=== PATIENT | male | born 1985 | race American Indian/Alaskan Native ===

== ENCOUNTER 2016-06-05 10:23 | Emergency (ER) | payer SELFPAY ==
[2016-06-05 11:56] VITALS: BP 141/91
== END 2016-06-05 11:57 | disposition left against medical advice (07) ==
LOC: ED 10:23
DX: S09.93XA Unspecified injury of face, initial encounter (principal); Y09 Assault by unspecified means; Y93.9 Activity, unspecified; Y99.9 Unspecified external cause status; Y92.89 Other specified places as the place of occurrence of the external cause; Z53.21 Procedure and treatment not carried out due to patient leaving prior to being seen by health care provider

== ENCOUNTER 2017-11-12 22:40 | Emergency (ER) | payer MEDICAID ==
[2017-11-12 22:55] VITALS: BP 142/95
[2017-11-13] MEDS ORDERED: ZITHROMAX PO ONE (04:00)
[2017-11-13] MEDS ORDERED: XYLOCAINE 1% MPF 5 mL INFILTRATI ONE (04:00)
[2017-11-13] MEDS ORDERED: ROCEPHIN IM ONE (04:00)
== END 2017-11-13 03:11 | disposition left against medical advice (07) ==
LOC: ED 22:40
DX: R36.9 Urethral discharge, unspecified (principal); Z53.21 Procedure and treatment not carried out due to patient leaving prior to being seen by health care provider
CPT/HCPCS: 87591

== ENCOUNTER 2017-11-16 11:33 | Emergency (ER) | payer MEDICARE ==
--- NOTE | 2017-11-16 12:01 | Emergency Department Report ---
ED Male HPI - General Chief complaint: Urogenital-Male Stated complaint: STD Time Seen by Provider: 11/16/17 11:42 Source: patient Mode of arrival: Ambulatory Limitations: No Limitations - History of Present Illness Initial comments: This is a 32-year-old -Martiniquais male who presents with exposure to STD and requests pain treatment. Patient reports his girlfriend was diagnosed with Chlamydia one week ago and he came in for evaluation here in this ER last had to leave prior to being seen. Patient reports symptoms have increased. He reports having yellow penile discharge with moderate meatus itching and low pelvic pain. He states [id number] pain medication has not provided any relief. Denies frequency, urgency, fever, nausea or vomiting, testicular pain or swelling, and voiding or bowel changes. MD Complaint: penile discharge (yellowish discharge) -: week(s) (one week) Location: abdomen (suprapubic pain) Radiation: none Severity: moderate Severity scale (0 -10): 5 Quality: aching Consistency: intermittent Improves with: none Worsens with: urination new sexual partner discharge, dysuria. denies: swelling, mass, rash, urinary retention, blood in urine, fever, nausea/vomiting, incontinence - Related Data Sexually active: Yes Allergies Allergy/AdvReac Type Severity Reaction Status Date / Time No Known Allergies Allergy Verified 11/10/15 20:16 ED Review of Systems ROS: Stated complaint: STD Other details as noted in HPI Constitutional: denies: chills, fever Respiratory: denies: cough, shortness of breath, wheezing Cardiovascular: denies: chest pain, palpitations Gastrointestinal: abdominal pain (suprapubic pelvic pain). denies: nausea, vomiting, diarrhea, constipation, hematochezia Genitourinary: dysuria, discharge (yellowish discharge). denies: urgency, frequency, hematuria, testicular pain, testicular mass Musculoskeletal: denies: back pain, joint swelling, arthralgia Neurological: denies: headache, weakness, numbness, paresthesias Psychiatric: denies: anxiety, depression ED Past Medical Hx - Past Medical History Previous Medical History?: No - Surgical History Past Surgical History?: No - Social History Smoking Status: Current Every Day Smoker Substance Use Type: Alcohol ED Physical Exam - General Limitations: No Limitations General appearance: alert, in no apparent distress - Respiratory Respiratory exam: Present: normal lung sounds bilaterally. Absent: respiratory distress - Cardiovascular Cardiovascular Exam: Present: regular rate, normal rhythm. Absent: systolic murmur, diastolic murmur, rubs, gallop - GI/Abdominal GI/Abdominal exam: Present: soft, normal bowel sounds - Back Exam Back exam: Present: normal inspection. Absent: CVA tenderness (R), CVA tenderness (L) - Neurological Exam Neurological exam: Present: alert, oriented X3, normal gait - Psychiatric Psychiatric exam: Present: normal affect, normal mood - Skin Skin exam: Present: warm, dry, intact, normal color. Absent: rash ED Course Vital Signs 11/16/17 11:36 Temperature 98.1 F Pulse Rate 65 Respiratory 18 Rate Blood Pressure 148/93 O2 Sat by Pulse 96 Oximetry ED Medical Decision Making - Medical Decision Making This is a 32-year-old -Martiniquais male who presents with pelvic pain, penile irritation and discharge for 1 week. Patient was examined by me. Vitals are stable and in no acute distress. No labs ordered. Empirically treated with Rocephin 250 mg IM and azithromycin 1 g by mouth. Discharged home in stable condition. Discussed prevention options. F/U with PCP or Health Department. Critical care attestation.: If time is entered above; I have spent that time in minutes in the direct care of this critically ill patient, excluding procedure time. ED Disposition Clinical Impression: Exposure to STD Disposition: DC-01 TO HOME OR SELFCARE Is pt being admited?: No Does the pt Need Aspirin: No Condition: Stable Instructions: Chlamydia Infection (ED), Safe Sex (ED), Sexually Transmitted Diseases (ED) Additional Instructions: Avoid drinking alcohol for 24 hours after completion of antibiotics. Continue safe sexual intercourse. Follow up with Primary Care Provider or health department in 2-3 days for full STD screening. Referrals: GIULIA VILLALOBOS [Primary Care Provider] - 3-5 Days [facility] [place] [Outside] - 3-5 Days [facility] [Outside] - 3-5 Days Time of Disposition: 12:04 Print Language: FRENCH
[2017-11-16] MEDS ORDERED: XYLOCAINE 1% MPF 5 mL INFILTRATI ONE (12:04)
[2017-11-16] MEDS ORDERED: ROCEPHIN IM ONE (12:04)
[2017-11-16] MEDS ORDERED: ZITHROMAX PO ONE (12:04)
[2017-11-16 12:53] VITALS: BP 142/88
== END 2017-11-16 12:53 | disposition home or self-care (01) ==
LOC: ED 11:33
DX: Z20.2 Contact with and (suspected) exposure to infections with a predominantly sexual mode of transmission (principal); F17.200 Nicotine dependence, unspecified, uncomplicated
CPT/HCPCS: 96372; 99283; J0696

== ENCOUNTER 2020-08-12 08:25 | Observation (INO) | payer OTHER, MEDICARE ==
--- NOTE | 2020-08-12 09:44 | Emergency Department Report ---
<ADELE DE GUZMAN - Last Filed: 08/12/20 12:26> ED General Adult HPI - General Chief complaint: Weakness Stated complaint: WEAKNESS Time Seen by Provider: 08/12/20 09:23 - Related Data Home Medications Medication Instructions Recorded Confirmed Last Taken No Known Home Medications [No 08/12/20 08/12/20 Unknown Reported Home Medications] Allergies Allergy/AdvReac Type Severity Reaction Status Date / Time No Known Allergies Allergy Verified 11/10/15 20:16 ED Past Medical Hx - Medications Home Medications: Home Medications Medication Instructions Recorded Confirmed Last Taken Type No Known Home Medications [No 08/12/20 08/12/20 Unknown History Reported Home Medications] ED Medical Decision Making - Lab Data Result diagrams: 08/12/20 09:59 08/12/20 09:59 Critical Care Time: Yes Critical care time in (mins) excluding proc time.: 35 ED Disposition Clinical Impression: Suspected 2019 novel coronavirus infection, Dehydration Diabetic ketoacidosis Qualifiers: Diabetes mellitus type: type 2 Diabetes mellitus complication detail: without coma Qualified Code(s): E11.10 - Type 2 diabetes mellitus with ketoacidosis without coma Disposition: -09 OP ADMIT IP TO THIS HOSP Is pt being admited?: Yes Does the pt Need Aspirin: No Condition: Serious Instructions: Diabetic Ketoacidosis (ED) Referrals: PRIMARY CARE, [Primary Care Provider] - 3-5 Days <NIXON CHAPA - Last Filed: 08/12/20 14:11> ED General Adult HPI - General Source: patient, EMS Mode of arrival: Ambulatory Limitations: No Limitations - History of Present Illness Initial comments: Mr. Huggins is a 34-year-old male presents to the emergency room with complaint of my "immune system is weak"and I lost of taste and smell for about 2 to 3 days he also reports blurry vision. He states that the week before last he drank a heavy amount of alcohol. He has not drank any alcohol last week. He denies ch est pain he denies shortness of breath he denies fever and chills. Patient states that he was told in the past that his blood pressure was elevated and that was told to monitor his salt intake. He's not prescribed any medication for hypertension. Patient is awake alert oriented and is in no acute distress -: days(s) Radiation: non-radiation Consistency: constant Improves with: none Worsens with: none Associated Symptoms: loss of appetite, malaise (Generalized weakness). denies: confusion, chest pain, cough, diaphoresis, fever/chills Treatments Prior to Arrival: none ED Review of Systems ROS: Stated complaint: WEAKNESS Other details as noted in HPI Comment: All other systems reviewed and negative Constitutional: malaise, weakness. denies: chills, fever ENT: denies: ear pain, throat pain, dental pain, hearing loss Cardiovascular: denies: chest pain, palpitations, dyspnea on exertion, edema, syncope Endocrine: denies: excessive sweating, intolerance to cold, intolerance to heat, increased hunger, increased thirst, increased urine Gastrointestinal: denies: abdominal pain, nausea, vomiting, constipation, hematemesis Genitourinary: denies: urgency, dysuria, frequency, hematuria Musculoskeletal: denies: back pain Skin: denies: rash, lesions Neurological: denies: headache, weakness ED Past Medical Hx - Past Medical History Previous Medical History?: Yes Hx Hypertension: Yes (non compliant with meds) Additional medical history: Alcohol abuse - Surgical History Past Surgical History?: No - Social History Smoking Status: Current Every Day Smoker Substance Use Type: Alcohol, Marijuana ED Physical Exam - General Limitations: No Limitations General appearance: alert, in no apparent distress - Head Head exam: Present: atraumatic, normal inspection - Eye Eye exam: Present: normal appearance - ENT ENT exam: Present: normal exam, mucous membranes moist - Neck Neck exam: Present: normal inspection, full ROM. Absent: lymphadenopathy - Respiratory Respiratory exam: Present: normal lung sounds bilaterally. Absent: respiratory distress, wheezes, rales, rhonchi - Cardiovascular Cardiovascular Exam: Present: regular rate, normal rhythm - GI/Abdominal GI/Abdominal exam: Present: soft. Absent: distended, tenderness - Rectal Rectal exam: Present: deferred - Extremities Exam Extremities exam: Present: normal inspection - Back Exam Back exam: Present: normal inspection - Neurological Exam Neurological exam: Present: alert, oriented X3 - Psychiatric Psychiatric exam: Present: normal affect - Skin Skin exam: Present: warm, dry, intact, normal color ED Course Vital Signs 08/12/20 08/12/20 08:40 09:06 Temperature 98.2 F Pulse Rate 113 H Respiratory 16 18 Rate Blood Pressure 167/109 O2 Sat by Pulse 99 96 Oximetry - Reevaluation(s) Reevaluation #1: 08/12/20 11:32 Lab called with abnormal glucose greater than 600 . at bedside to reevaluate the patient he has no prior history of diabetes he does report in increased thirst and voiding more than usual. IV fluids a liter normal saline bolus ordered venous pH stat ordered and a complete metabolic panel ordered. Plan of care discussed with patient Reevaluation #2: 08/12/20 12:29 Dr. De Guzman in to see patient he explained patient that he would require admission patient verbalizes understanding and agrees to admission 08/12/20 13:16 Reevaluation #3: 08/12/20 12:[address] Peña and notified him of the patient. Dr. Peña wants patient to be admitted to ICU and also requesting a call back with urine results ED Medical Decision Making - Lab Data Result diagrams: 08/12/20 09:59 08/12/20 12:46 - Radiology Data Radiology results: report reviewed : CHEST 2 VIEWS SUPPORT DEVICES: None. HEART / MEDIASTINUM: No significant abnormality. LUNGS / PLEURA: No significant pulmonary or pleural abnormality. No pneumothorax. ADDITIONAL FINDINGS: No significant additional findings. IMPRESSION: 1. No acute findings. - Medical Decision Making 34-year-old male presents to the emergency room with complaint of feeling weak, blurry vision, and loss of taste and smell . He denied chest pain shortness of breath cough fever chills nausea vomiting diarrhea, blood work revealed glucose 604, K+ 5.4 anion gap of 27 venous pH of 7.287. Chest x-ray shows no acute findings. Patient denies any previous history of diabetes. He also states he is unaware of any familial history of diabetes. Patient discussed with Dr. De Guzman. Dr. De Guzman into see patient. patient is notified of new onset diabetes and the need for admission to the hospital for further work-up and treatment. I called Dr. Peña hospitalist and discussed patient with him . Dr. Peña states patient needs to be admitted to ICU, insulin drip started . He requested a return call after urinalysis. - Differential Diagnosis New onset diabetes, Covid 19 , Critical care attestation.: If time is entered above; I have spent that time in minutes in the direct care of this critically ill patient, excluding procedure time. ED Disposition Is pt being admited?: Yes Does the pt Need Aspirin: No
--- NOTE | 2020-08-12 10:13 | XRay Report ---
CHEST 2 VIEWS INDICATION / CLINICAL INFORMATION: COVID LIKE SYMPTOMS. COMPARISON: None available. FINDINGS: SUPPORT DEVICES: None. HEART / MEDIASTINUM: No significant abnormality. LUNGS / PLEURA: No significant pulmonary or pleural abnormality. No pneumothorax. ADDITIONAL FINDINGS: No significant additional findings. IMPRESSION: 1. No acute findings. Signer Name: Frankie Wynn MD Signed: 08/12/2020 10:08 AM Workstation Name: [id number]
[2020-08-12 11:03] LABS: Hemoglobin 16.6 gm/dl (11.8-15.2); Mean Corpuscular HGB Conc 33 % (32-34); Mean Corpuscular Volume 81 fl (84-94); Platelet Count 171 K/mm3 (140-440); Red Blood Count 6.21 M/mm3 (3.65-5.03); Red Cell Distribution Width 13.8 % (13.2-15.2)
[2020-08-12 11:18] LABS: BUN/Creatinine Ratio 17; Blood Urea Nitrogen 24 mg/dL (9-20); Calcium 11.3 mg/dL (8.4-10.2); Hemolysis Index 101
[2020-08-12] MEDS ORDERED: SODIUM CHLORIDE 0.9% 1000 ML 1,000 ML IV ONE (11:24)
[2020-08-12] MEDS ORDERED: INSULIN REGULAR, HUMAN 100 UNITS/1 ML IV ONE (11:26)
[2020-08-12 12:18] LABS: Alanine Aminotransferase 36 units/L (7-56); Albumin 4.8 g/dL (3.9-5); BUN/Creatinine Ratio 16; Blood Urea Nitrogen 23 mg/dL (9-20); Calcium 11.5 mg/dL (8.4-10.2); Hemolysis Index 68
[2020-08-12] MEDS ORDERED: LACTATED RINGERS 2,000 ML IV ONE (12:25)
[2020-08-12] MEDS ORDERED: DEXTROSE 50% IN WATER (25GM) 50 ML SYRINGE IV PRN (12:25)
--- NOTE | 2020-08-12 12:28 | Event Note ---
Date of service: 08/12/20 Face to Face: The patient was evaluated in the emergency department for symptoms described in the history of present illness. He/she was evaluated in the context of the global COVID-19 pandemic, which necessitated consideration that the patient might be at risk for infection with the virus that causes COVID-19. Institutional protocols and algorithms that pertain to the evaluation of patients at risk for COVID-19 are in a state of rapid change based on information released by regulatory bodies including the CDC and federal and state organizations. These policies and algorithms were followed during the patient's care in the emergency department. Please note that these policies, procedures and recommendations changed on a rapid basis. Patient found to have evidence of diabetic ketoacidosis, manifest by metabolic acidosis, acidotic venous pH, and hyperglycemia. He has also endorsed some symptomatology suggestive of COVID-19. Place patient on isolation. Obtain appropriate laboratory studies for Covid, and start IV fluids and insulin therapy. Nurse practitioner to admit to the medical service. Patient amenable to plan of care. He denies physical pain at this time. X-ray of the chest is negative for acute findings. Vital Signs 08/12/20 08/12/20 08:40 09:06 Temperature 98.2 F Pulse Rate 113 H Respiratory 16 18 Rate Blood Pressure 167/109 O2 Sat by Pulse 99 96 Oximetry Lab Results 08/12/20 08/12/20 08/12/20 Range/Units 09:59 09:59 09:59 WBC 5.0 (4.5-11.0) K/mm3 RBC 6.21 H (3.65-5.03) M/mm3 Hgb 16.6 H (11.8-15.2) gm/dl Hct 50.0 H (35.5-45.6) % MCV 81 L (84-94) fl MCH 27 L (28-32) pg MCHC 33 (32-34) % RDW 13.8 (13.2-15.2) % Plt Count 171 (140-440) K/mm3 VBG pH (7.320-7.420) Sodium 138 140 (137-145) mmol/L Potassium 5.4 H 5.1 H (3.6-5.0) mmol/L Chloride 93.6 L 94.1 L (98-107) mmol/L Carbon Dioxide 24 24 (22-30) mmol/L Anion Gap 26 27 mmol/L BUN 24 H 23 H (9-20) mg/dL Creatinine 1.4 H 1.4 H (0.8-1.3) mg/dL Estimated GFR > 60 > 60 ml/min BUN/Creatinine Ratio 17 16 % Glucose 609 H* 549 H* (75-100) mg/dL Calcium 11.3 H 11.5 H (8.4-10.2) mg/dL Total Bilirubin 0.30 (0.1-1.2) mg/dL ALT 36 (7-56) units/L Alkaline Phosphatase 136 H (35-129) units/L Total Protein 9.0 H (6.3-8.2) g/dL Albumin 4.8 (3.9-5) g/dL Albumin/Globulin Ratio 1.1 % // Range/Units 11:29 WBC (4.5-11.0) K/mm3 RBC (3.65-5.03) M/mm3 Hgb (11.8-15.2) gm/dl Hct (35.5-45.6) % MCV (84-94) fl MCH (28-32) pg MCHC (32-34) % RDW (13.2-15.2) % Plt Count (140-440) K/mm3 VBG pH 7.285 L (7.320-7.420) Sodium (137-145) mmol/L Potassium (3.6-5.0) mmol/L Chloride (98-107) mmol/L Carbon Dioxide (22-30) mmol/L Anion Gap mmol/L BUN (9-20) mg/dL Creatinine (0.8-1.3) mg/dL Estimated GFR ml/min BUN/Creatinine Ratio % Glucose (75-100) mg/dL Calcium (8.4-10.2) mg/dL Total Bilirubin (0.1-1.2) mg/dL ALT (7-56) units/L Alkaline Phosphatase (35-129) units/L Total Protein (6.3-8.2) g/dL Albumin (3.9-5) g/dL Albumin/Globulin Ratio %
[2020-08-12 13:25] LABS: BUN/Creatinine Ratio 15; Blood Urea Nitrogen 23 mg/dL (9-20); Calcium 11.7 mg/dL (8.4-10.2); Hemolysis Index 23
[2020-08-12 13:26] LABS: C-Reactive Protein 0.6 mg/dL (0.00-1.30)
[2020-08-12] MEDS: INSULIN REGULAR, HUMAN 100 UNITS in SODIUM CHLORIDE 0.9% 99 ML IV SCH ×3 (13:28→23:27)
[2020-08-12 15:01] LABS: BUN/Creatinine Ratio 17; Blood Urea Nitrogen 22 mg/dL (9-20); Calcium 10.5 mg/dL (8.4-10.2); Hemolysis Index 38
[2020-08-12 16:11] LABS: Bilirubin,Urine NEG (Negative); Blood,Urine NEG (Negative); Color,Urine Straw (Yellow); Mucus,Urine FEW /HPF; RBC,Urine < 1.0 /HPF (0.0-6.0); Urobilinogen,Urine < 2.0 mg/dL (<2.0)
[2020-08-12 17:00] LABS: BUN/Creatinine Ratio 15; Blood Urea Nitrogen 20 mg/dL (9-20); Calcium 10.4 mg/dL (8.4-10.2); Hemolysis Index 40
[2020-08-12] MEDS: D5W/0.45% NACL/KCL 20 MEQ 20 MEQ/1,000 ML BAG IV SCH (18:13)
[2020-08-12 19:09] LABS: BUN/Creatinine Ratio 15; Blood Urea Nitrogen 18 mg/dL (9-20); Calcium 9.3 mg/dL (8.4-10.2); Hemolysis Index 43
[2020-08-12 21:15] LABS: BUN/Creatinine Ratio 15; Blood Urea Nitrogen 18 mg/dL (9-20); Calcium 9.7 mg/dL (8.4-10.2); Hemolysis Index 49
--- NOTE | 2020-08-12 21:49 | History and Physical Report ---
History of Present Illness Date of examination: 08/12/20 Date of admission: 08/12/20 13:30 Chief complaint: Feels weak and lethargic for 1 week History of present illness: 34-year-old -[place] male with history of hypertension and obesity presents with feeling weak and increased thirst and increased urination. Patient evaluate complaints. Patient had positive amount of alcohol 1 week ago but did not consume any in the last 1 week. In the emergency room patient was found to have blood glucose levels in the 600s. Work-up revealed new onset diabetes with hyperosmolar state. Hence patient being admitted for hyperosmolar nonketotic state. Patient has polyuria polydipsia and polyphagia. Not a known diabetic before. No fever or chills. Nausea present. No vomiting. Tongue is very dry. - Past Medical History Previous Medical History?: Yes --Hypertension: Yes (non compliant with meds) Additional medical history: Alcohol abuse - Surgical History Past Surgical History?: No - Social History Smoking Status: Current Every Day Smoker Substance Use Type: Alcohol, Marijuana Review of Systems ROS: Constitutional feels weak and lethargic, polyphagia and loss of weight present. HEENT no sore throat no post nasal drip no diplopia Neck no neck stiffness no lymph gland enlargement Chest and lungs no shortness of breath cough or wheezing CVS no chest pain no diaphoresis no palpitations GI no nausea no vomiting no diarrhea Genitourinary system polyuria Musculoskeletal system no muscle pains no joint pains [employer] no syncope no seizures Skin no rash no itching Psychiatric no depression no homicidal or suicidal tendencies Hematologic no lymphedema or bruising Endocrine no polydipsia no polyuria no cold intolerance no heat intolerance Medications and Allergies Allergies Allergy/AdvReac Type Severity Reaction Status Date / Time No Known Allergies Allergy Verified 11/10/15 20:16 Home Medications Medication Instructions Recorded Confirmed Last Taken Type No Known Home Medications [No 08/12/20 08/12/20 Unknown History Reported Home Medications] Active Meds: Active Medications Dextrose (Dextrose 50% In Water (25gm) 50 Ml Syringe) 0 ml IV Q30MIN PRN; Protocol PRN Reason: Hypoglycemia Insulin Human Regular 100 (units/ Sodium Chloride) 100 mls @ 1 mls/hr IV TITR DANNY; Protocol Last Titration: 08/12/20 20:17 Dose: 8 units/hr, 8 mls/hr Documented by: Potassium Chloride/Dextrose/Sod Cl (D5w/0.45% Nacl/Kcl 20 Meq) 20 meq in 1,000 mls @ 125 mls/hr IV DIRECT DANNY Last Admin: 08/12/20 18:13 Dose: 125 mls/hr Documented by: Sodium Chloride (Sodium Chloride 0.9% 10 Ml Flush Syringe) 10 ml IV PRN NR Stop: 08/12/20 23:59 Exam - Constitutional Vitals: Temp Pulse Resp BP Pulse Ox 98.6 F 78 11 L 151/88 95 08/12/20 19:52 08/12/20 20:00 08/12/20 19:48 08/12/20 19:01 08/12/20 19:48 General appearance: Present: mild distress, well-nourished - EENT Eyes: Present: PERRL ENT: hearing intact, clear oral mucosa - Neck Neck: Present: supple, normal ROM - Respiratory Respiratory effort: normal Respiratory: bilateral: CTA - Cardiovascular Heart rate: 78 Rhythm: regular Heart Sounds: Present: S1 & S2. Absent: rub, click - Extremities Extremities: pulses symmetrical, No edema Peripheral Pulses: within normal limits - Abdominal General gastrointestinal: Present: soft, non-tender, non-distended, normal bowel sounds Male genitourinary: Present: normal - Integumentary Integumentary: Present: clear, warm, dry - Musculoskeletal Musculoskeletal: gait normal, strength equal bilaterally - Psychiatric Psychiatric: appropriate mood/affect, intact judgment & insight - Neurologic Neurologic: CNII-XII intact, moves all extremities - Allied Health Allied health notes reviewed: nursing, case management Results - Labs CBC & Chem 7: 08/12/20 09:59 08/13/20 05:07 Labs: Laboratory Last Values WBC 5.0 K/mm3 (4.5-11.0) 08/12/20 09:59 RBC 6.21 M/mm3 (3.65-5.03) H 08/12/20 09:59 Hgb 16.6 gm/dl (11.8-15.2) H 08/12/20 09:59 Hct 50.0 % (35.5-45.6) H 08/12/20 09:59 MCV 81 fl (84-94) L 08/12/20 09:59 MCH 27 pg (28-32) L 08/12/20 09:59 MCHC 33 % (32-34) 08/12/20 09:59 RDW 13.8 % (13.2-15.2) 08/12/20 09:59 Plt Count 171 K/mm3 (140-440) 08/12/20 09:59 D-Dimer 165.84 ng/mlDDU (0-234) 08/12/20 12:46 VBG pH 7.285 (7.320-7.420) L 08/12/20 11:29 Sodium 149 mmol/L (137-145) H D 08/12/20 20:33 Potassium 4.1 mmol/L (3.6-5.0) D 08/12/20 20:33 Chloride 106.3 mmol/L (98-107) 08/12/20 20:33 Carbon Dioxide 29 mmol/L (22-30) 08/12/20 20:33 Anion Gap 18 mmol/L 08/12/20 20:33 BUN 18 mg/dL (9-20) 08/12/20 20:33 Creatinine 1.2 mg/dL (0.8-1.3) 08/12/20 20:33 Estimated GFR > 60 ml/min 08/12/20 20:33 BUN/Creatinine Ratio 15 % 08/12/20 20:33 Glucose 210 mg/dL (75-100) H 08/12/20 20:33 POC Glucose 174 mg/dL (70-105) H 08/12/20 17:48 Calcium 9.7 mg/dL (8.4-10.2) 08/12/20 20:33 Phosphorus 6.10 mg/dL (2.5-4.5) H 08/12/20 12:46 Magnesium 2.60 mg/dL (1.7-2.3) H 08/12/20 12:46 Magnesium 2.60 mg/dL (1.7-2.3) H 08/12/20 12:46 Ferritin 539.1 ng/mL (30.0-300.0) H 08/12/20 12:46 Total Bilirubin 0.30 mg/dL (0.1-1.2) 08/12/20 09:59 AST < 5 units/L (5-40) L 08/12/20 09:59 ALT 36 units/L (7-56) 08/12/20 09:59 Alkaline Phosphatase 136 units/L (35-129) H 08/12/20 09:59 Lactate Dehydrogenase 148 units/L (91-180) 08/12/20 12:46 Lactate Dehydrogenase 212 units/L (91-180) H 08/12/20 12:46 Total Creatine Kinase 106 units/L (55-170) 08/12/20 12:46 C-Reactive Protein 0.60 mg/dL (0.00-1.30) 08/12/20 12:46 C-Reactive Protein 0.60 mg/dL (0.00-1.30) 08/12/20 12:46 Total Protein 9.0 g/dL (6.3-8.2) H 08/12/20 09:59 Albumin 4.8 g/dL (3.9-5) 08/12/20 09:59 Albumin/Globulin Ratio 1.1 % 08/12/20 09:59 Procalcitonin 0.06 ng/mL (<0.15) 08/12/20 12:46 Urine Color Straw (Yellow) 08/12/20 15:03 Urine Turbidity Clear (Clear) 08/12/20 15:03 Urine pH 5.0 (5.0-7.0) 08/12/20 15:03 Ur Specific [place] 1.035 (1.003-1.030) H 08/12/20 15:03 Urine Protein 30 mg/dl mg/dL (Negative) 08/12/20 15:03 Urine Glucose (UA) >=500 mg/dL (Negative) 08/12/20 15:03 Urine Ketones 80 mg/dL (Negative) 08/12/20 15:03 Urine Blood Neg (Negative) 08/12/20 15:03 Urine Nitrite Neg (Negative) 08/12/20 15:03 Urine Bilirubin Neg (Negative) 08/12/20 15:03 Urine Urobilinogen < 2.0 mg/dL (<2.0) 08/12/20 15:03 Ur Leukocyte Esterase Neg (Negative) 08/12/20 15:03 Urine WBC (Auto) 1.0 /HPF (0.0-6.0) 08/12/20 15:03 Urine RBC (Auto) < 1.0 /HPF (0.0-6.0) 08/12/20 15:03 U Epithel Cells (Auto) < 1.0 /HPF (0-13.0) 08/12/20 15:03 Urine Mucus Few /HPF 08/12/20 15:03 Short CBC 08/12/20 Range/Units 09:59 WBC 5.0 (4.5-11.0) K/mm3 Hgb 16.6 H (11.8-15.2) gm/dl Hct 50.0 H (35.5-45.6) % Plt Count 171 (140-440) K/mm3 BMP 08/12/20 08/12/20 08/12/20 09:59 09:59 12:46 Sodium 138 140 Potassium 5.4 H 5.1 H Chloride 93.6 L 94.1 L Carbon Dioxide 24 24 BUN 24 H 23 H Creatinine 1.4 H 1.4 H Glucose 609 H* 549 H* 505 H* Calcium 11.3 H 11.5 H 08/12/20 08/12/20 08/12/20 12:46 14:18 16:27 Sodium 141 141 143 Potassium 5.2 H 4.1 D 3.9 Chloride 95.2 L 97.1 L 101.0 Carbon Dioxide 25 21 L 19 L BUN 23 H 22 H 20 Creatinine 1.5 H 1.3 1.3 Glucose 517 H* 385 H 240 H Calcium 11.7 H 10.5 H 10.4 H 08/12/20 08/12/20 08/13/20 18:36 20:33 05:07 Sodium 140 149 H D 149 H Potassium 5.2 H D 4.1 D 3.9 Chloride 101.8 106.3 108.3 H Carbon Dioxide 23 29 31 H BUN 18 18 17 Creatinine 1.2 1.2 1.4 H Glucose 420 H 210 H 136 H Calcium 9.3 9.7 9.4 Cardiac Enzymes 08/12/20 Range/Units 12:46 Total Creatine Kinase 106 (55-170) units/L Liver Function 08/12/20 Range/Units 09:59 Total Bilirubin 0.30 (0.1-1.2) mg/dL AST < 5 L (5-40) units/L ALT 36 (7-56) units/L Alkaline Phosphatase 136 H (35-129) units/L Albumin 4.8 (3.9-5) g/dL Urine 03/27/21 Range/Units 15:03 Urine Color Straw (Yellow) Urine pH 5.0 (5.0-7.0) Ur Specific [place] 1.035 H (1.003-1.030) Urine Protein 30 mg/dl (Negative) mg/dL Urine Glucose (UA) >=500 (Negative) mg/dL - Imaging and Cardiology Chest x-ray: report reviewed (No acute findings) Assessment and Plan Assessment and plan: Critical care statement The high probability OF a clinically significant sudden or life-threatening deterioration of the cardiorespiratory system and endocrine system required my full and direct attention, intervention and postoperative management. The aggregate critical care time was 40 minutes. The time is in addition to time spent performing reported procedures but includes the followin: Data review and interpretation 2: Patient assessment and monitoring of vital signs 3: Documentation 4:: Medication orders and management Advance Directives: Yes (Full code) VTE prophylaxis?: Chemical Plan of care discussed with patient/family: Yes - Patient Problems (1) DKA (diabetic ketoacidoses) Current Visit: Yes Status: Acute Qualifiers: Diabetes mellitus type: type 2 Diabetes mellitus complication detail: without coma Qualified Code(s): E11.10 - Type 2 diabetes mellitus with ketoacidosis without coma Plan to address problem: I am more episode of hyperosmolar nonketotic state Mild increase in the anion gap and 80 ketones in the urine New onset diabetes with hyperosmolar state DKA protocol initiated Patient was educated of about diabetes for some extent But more diabetes education by the nurses and the dietitian Patient to be switched to long-acting insulin and short-acting insulin or NovoLog 70/30 twice daily Will defer to primary team Check hemoglobin A1c IV insulin and IV fluids for now Patient has nausea but no vomiting (2) Dehydration Current Visit: Yes Status: Acute Plan to address problem: IV fluids for now Hemoconcentration present (3) GISELLE (acute kidney injury) Current Visit: Yes Status: Acute Plan to address problem: Patient initiated on IV fluids Secondary to volume depletion and vasomotor nephropathy (4) Hypertension Current Visit: Yes Status: Chronic Qualifiers: Hypertension type: essential hypertension Qualified Code(s): I10 - Essential (primary) hypertension Plan to address problem: Continue antihypertensives and adjust medications (5) Hyperkalemia Current Visit: Yes Status: Acute Plan to address problem: Mild Should correct with IV insulin and IV fluids (6) Obesity (BMI 30.0-34.9) Current Visit: Yes Status: Chronic Plan to address problem: Patient counseled about obesity and exercise and weight loss programs (7) DVT prophylaxis Current Visit: Yes Status: Acute Plan to address problem: On heparin and GI prophylaxis
[2020-08-13] MEDS: D5W/0.45% NACL/KCL 20 MEQ 20 MEQ/1,000 ML BAG IV SCH (02:13)
[2020-08-13 06:01] LABS: BUN/Creatinine Ratio 12; Blood Urea Nitrogen 17 mg/dL (9-20); Calcium 9.4 mg/dL (8.4-10.2); Hemolysis Index 34
[2020-08-13] MEDS: INSULIN REGULAR, HUMAN 100 UNITS in SODIUM CHLORIDE 0.9% 99 ML IV SCH (06:01)
[2020-08-13] MEDS ORDERED: POTASSIUM CHLORIDE ER 20 MEQ TAB PO ONE (06:09)
[2020-08-13] MEDS: POTASSIUM CHLORIDE 10 MEQ 10 MEQ/100 ML BAG IV SCH ×2 (07:31)
[2020-08-13] MEDS ORDERED: SODIUM CHLORIDE 0.45% 1000 ML 1,000 ML IV SCH (09:00)
[2020-08-13] MEDS ORDERED: SODIUM CHLORIDE 0.45% 1000 ML IV SOLN IV SCH (09:00)
[2020-08-13] MEDS: metFORMIN 500 MG TAB PO SCH ×2 (09:05→16:55)
[2020-08-13] MEDS: HEPARIN 5,000 UNIT/1 ML VIAL SUB-Q SCH ×2 (09:05→21:12)
[2020-08-13] MEDS: GLIMEPIRIDE 2 MG TAB PO SCH (09:45)
[2020-08-13] MEDS ORDERED: LOSARTAN 25 MG TAB PO SCH (10:00)
[2020-08-13] MEDS: INSULIN LISPRO 100 UNIT/ML SUB-Q SCH ×3 (11:14→21:13)
--- NOTE | 2020-08-13 12:38 | Progress Note ---
Subjective Date of service: 08/13/20 Interval history: History of present illness: 34-year-old -[place] male with history of hypertension and obesity presents with feeling weak and increased thirst and increased urination. Patient evaluate complaints. Patient had positive amount of alcohol 1 week ago but did not consume any in the last 1 week. In the emergency room patient was found to have blood glucose levels in the 600s. Work-up revealed new onset diabetes with hyperosmolar state. Hence patient being admitted for hyperosmolar nonketotic state. Patient has polyuria polydipsia and polyphagia. Not a known diabetic before. No fever or chills. Nausea present. No vomiting. Tongue is very dry. 08/13 Patient is resting in the bed, alert and oriented, he offers no specific complaints, states he feels a whole lot better today He denies any fever or chills. Denies feeling dehydrated today. Denies chest pain or shortness of breath, nausea or abdominal pain or melena Lab results reviewed 12 point review of systems is essentially unremarkable except as stated above in the history of present illness Assessment and plan Hyperosmolar nonketotic new onset type 2 diabetes A1c 13.7 Accu-Cheks reviewed This morning lab results reviewed We will discontinue IV insulin drip and start the patient on basal insulin and oral hypoglycemic medications Initiate insulin sliding scale coverage with moderate dose protocol Continue IV fluids I had a long discussion with the patient about the importance of good control of diabetes and dangers of long-term uncontrolled diabetes Hyperkalemia Secondary to #1 Improved Acute kidney injury Secondary to severe dehydration Improving well Continue IV fluids Monitor renal function Avoid nephrotoxins Hypertension Patient is not aware of having hypertension We will start on low-dose ARB Tobacco abuse Smoking cessation counseling was done Objective - Constitutional Vitals: Vital Signs - 12hr 08/13/20 08/13/20 08/13/20 00:41 00:51 01:01 Temperature Pulse Rate 83 62 60 Respiratory 13 13 12 Rate Blood Pressure 108/78 108/78 83/40 O2 Sat by Pulse 95 96 95 Oximetry 08/13/20 08/13/20 08/13/20 01:11 01:21 01:31 Temperature Pulse Rate 62 59 L 61 Respiratory 12 13 12 Rate Blood Pressure 91/47 91/47 108/78 O2 Sat by Pulse 98 95 96 Oximetry 08/13/20 08/13/20 08/13/20 01:41 01:51 02:01 Temperature Pulse Rate 71 69 69 Respiratory 13 13 11 L Rate Blood Pressure 108/78 108/78 108/78 O2 Sat by Pulse 96 95 95 Oximetry 08/13/20 08/13/20 08/13/20 02:10 02:21 02:31 Temperature Pulse Rate 57 L 55 L 77 Respiratory 8 L 11 L 13 Rate Blood Pressure 147/97 147/97 147/97 O2 Sat by Pulse 97 98 95 Oximetry 08/13/20 08/13/20 08/13/20 02:41 02:51 03:00 Temperature Pulse Rate 89 70 60 Respiratory 15 12 12 Rate Blood Pressure 147/97 147/97 148/86 O2 Sat by Pulse 99 96 94 Oximetry 08/13/20 08/13/20 08/13/20 03:11 03:20 03:21 Temperature 98.3 F Pulse Rate 62 59 L Respiratory 12 12 Rate Blood Pressure 148/86 148/86 O2 Sat by Pulse 97 94 Oximetry 08/13/20 08/13/20 08/13/20 03:31 03:41 03:51 Temperature Pulse Rate 65 64 68 Respiratory 12 12 12 Rate Blood Pressure 148/86 148/86 148/86 O2 Sat by Pulse 96 96 95 Oximetry 08/13/20 08/13/20 08/13/20 04:00 04:11 04:21 Temperature Pulse Rate 66 56 L 60 Respiratory 12 11 L 11 L Rate Blood Pressure 156/97 156/97 156/97 O2 Sat by Pulse 92 100 95 Oximetry 08/13/20 08/13/20 08/13/20 04:31 04:41 04:51 Temperature Pulse Rate 65 60 62 Respiratory 12 13 13 Rate Blood Pressure 156/97 156/97 156/97 O2 Sat by Pulse 95 96 96 Oximetry 08/13/20 08/13/20 08/13/20 05:00 05:11 05:21 Temperature Pulse Rate 56 L 65 65 Respiratory 12 14 12 Rate Blood Pressure 131/90 131/90 131/90 O2 Sat by Pulse 97 99 98 Oximetry 08/13/20 08/13/20 08/13/20 05:31 05:41 05:51 Temperature Pulse Rate 59 L 64 54 L Respiratory 11 L 10 L 14 Rate Blood Pressure 131/90 131/90 131/90 O2 Sat by Pulse 97 95 98 Oximetry 08/13/20 08/13/2021 06:00 06:11 06:21 Temperature Pulse Rate 57 L 61 51 L Respiratory 17 13 17 Rate Blood Pressure 148/94 131/90 131/90 O2 Sat by Pulse 97 96 Oximetry 08/13/20 08/13/20 08/13/20 06:31 06:41 06:51 Temperature Pulse Rate 54 L 57 L 57 L Respiratory 12 13 13 Rate Blood Pressure 131/90 131/90 131/90 O2 Sat by Pulse 93 98 96 Oximetry 08/13/20 08/13/20 08/13/20 07:00 07:11 07:21 Temperature Pulse Rate 55 L 71 71 Respiratory 12 12 13 Rate Blood Pressure 150/91 150/91 150/91 O2 Sat by Pulse 93 96 98 Oximetry 08/13/20 08/13/20 08/13/20 07:31 07:41 07:51 Temperature Pulse Rate 55 L 63 61 Respiratory 13 12 18 Rate Blood Pressure 150/91 150/91 150/91 O2 Sat by Pulse 99 98 96 Oximetry 08/13/20 08/13/20 08/13/20 08:00 08:11 08:21 Temperature 98.6 F Pulse Rate 78 59 L 53 L Respiratory 13 10 L 14 Rate Blood Pressure 148/95 148/95 148/95 O2 Sat by Pulse 96 99 98 Oximetry 08/13/20 08/13/20 08/13/20 08:31 08:41 08:51 Temperature Pulse Rate 52 L 78 64 Respiratory 13 12 12 Rate Blood Pressure 148/95 148/95 148/95 O2 Sat by Pulse 97 98 98 Oximetry 08/13/20 08/13/20 08/13/20 09:00 09:04 09:11 Temperature Pulse Rate 71 78 75 Respiratory 13 29 H Rate Blood Pressure 139/96 138/96 139/96 O2 Sat by Pulse 99 98 Oximetry 08/13/20 08/13/20 08/13/20 09:21 09:31 09:41 Temperature Pulse Rate 75 99 H 70 Respiratory 31 H 27 H 12 Rate Blood Pressure 139/96 139/96 139/96 O2 Sat by Pulse 97 97 97 Oximetry 08/13/20 08/13/20 08/13/20 09:51 10:00 10:11 Temperature Pulse Rate 77 67 71 Respiratory 19 17 11 L Rate Blood Pressure 139/96 136/75 136/75 O2 Sat by Pulse 96 96 96 Oximetry 08/13/20 08/13/20 08/13/20 10:21 10:31 10:41 Temperature Pulse Rate 68 78 68 Respiratory 16 13 15 Rate Blood Pressure 136/75 136/75 136/75 O2 Sat by Pulse 96 97 96 Oximetry 08/13/20 08/13/20 08/13/20 10:51 11:01 11:11 Temperature Pulse Rate 65 62 58 L Respiratory 15 14 14 Rate Blood Pressure 136/75 173/74 173/74 O2 Sat by Pulse 97 95 96 Oximetry 08/13/20 08/13/20 11:21 11:31 Temperature Pulse Rate 64 73 Respiratory 13 14 Rate Blood Pressure 173/74 173/74 O2 Sat by Pulse 96 94 Oximetry General appearance: Present: no acute distress, well-nourished - EENT Eyes: PERRL, EOM intact ENT: hearing intact, clear oral mucosa, no thrush - Neck Neck: supple, normal ROM, no masses or JVD - Respiratory Respiratory effort: normal Respiratory: bilateral: CTA - Cardiovascular Rhythm: regular Heart Sounds: Present: S1 & S2 Extremities: No edema - Gastrointestinal General gastrointestinal: Present: soft, non-tender Rectal Exam: deferred - Genitourinary Male genitourinary: deferred - Integumentary Integumentary: clear, warm - Musculoskeletal Musculoskeletal: strength equal bilaterally - Neurologic Neurologic: CNII-XII intact, no focal deficits - Psychiatric Psychiatric: appropriate mood/affect - Labs CBC & Chem 7: 08/12/20 09:59 08/13/20 05:07 Labs: Abnormal lab results 08/12/20 08/12/20 08/12/20 Range/Units 09:59 09:59 12:46 Sodium (137-145) mmol/L Potassium (3.6-5.0) mmol/L Chloride (98-107) mmol/L Carbon Dioxide (22-30) mmol/L BUN (9-20) mg/dL Creatinine (0.8-1.3) mg/dL Glucose (75-100) mg/dL POC Glucose (70-105) mg/dL Hemoglobin A1c 13.7 H (4-6) % Calcium (8.4-10.2) mg/dL Phosphorus 6.10 H (2.5-4.5) mg/dL Magnesium 2.60 H (1.7-2.3) mg/dL Ferritin (30.0-300.0) ng/mL AST < 5 L (5-40) units/L Lactate Dehydrogenase (91-180) units/L Ur Specific [place] (1.003-1.030) 08/12/20 08/12/20 08/12/20 Range/Units 12:46 12:46 12:46 Sodium (137-145) mmol/L Potassium 5.2 H (3.6-5.0) mmol/L Chloride 95.2 L (98-107) mmol/L Carbon Dioxide (22-30) mmol/L BUN 23 H (9-20) mg/dL Creatinine 1.5 H (0.8-1.3) mg/dL Glucose 505 H* 517 H* (75-100) mg/dL POC Glucose (70-105) mg/dL Hemoglobin A1c (4-6) % Calcium 11.7 H (8.4-10.2) mg/dL Phosphorus (2.5-4.5) mg/dL Magnesium 2.60 H (1.7-2.3) mg/dL Ferritin 539.1 H (30.0-300.0) ng/mL AST (5-40) units/L Lactate Dehydrogenase 212 H (91-180) units/L Ur Specific [place] (1.003-1.030) 08/12/20 08/12/20 08/12/20 Range/Units 13:22 14:18 14:31 Sodium (137-145) mmol/L Potassium (3.6-5.0) mmol/L Chloride 97.1 L (98-107) mmol/L Carbon Dioxide 21 L (22-30) mmol/L BUN 22 H (9-20) mg/dL Creatinine (0.8-1.3) mg/dL Glucose 385 H (75-100) mg/dL POC Glucose 482 H 379 H (70-105) mg/dL Hemoglobin A1c (4-6) % Calcium 10.5 H (8.4-10.2) mg/dL Phosphorus (2.5-4.5) mg/dL Magnesium (1.7-2.3) mg/dL Ferritin (30.0-300.0) ng/mL AST (5-40) units/L Lactate Dehydrogenase (91-180) units/L Ur Specific [place] (1.003-1.030) 08/12/20 08/12/20 08/12/20 Range/Units 15:03 15:45 16:27 Sodium (137-145) mmol/L Potassium (3.6-5.0) mmol/L Chloride (98-107) mmol/L Carbon Dioxide 19 L (22-30) mmol/L BUN (9-20) mg/dL Creatinine (0.8-1.3) mg/dL Glucose 240 H (75-100) mg/dL POC Glucose 262 H (70-105) mg/dL Hemoglobin A1c (4-6) % Calcium 10.4 H (8.4-10.2) mg/dL Phosphorus (2.5-4.5) mg/dL Magnesium (1.7-2.3) mg/dL Ferritin (30.0-300.0) ng/mL AST (5-40) units/L Lactate Dehydrogenase (91-180) units/L Ur Specific [place] 1.035 H (1.003-1.030) 08/12/20 08/12/20 08/12/20 Range/Units 16:50 17:48 18:36 Sodium (137-145) mmol/L Potassium 5.2 H D (3.6-5.0) mmol/L Chloride (98-107) mmol/L Carbon Dioxide (22-30) mmol/L BUN (9-20) mg/dL Creatinine (0.8-1.3) mg/dL Glucose 420 H (75-100) mg/dL POC Glucose 248 H 174 H (70-105) mg/dL Hemoglobin A1c (4-6) % Calcium (8.4-10.2) mg/dL Phosphorus (2.5-4.5) mg/dL Magnesium (1.7-2.3) mg/dL Ferritin (30.0-300.0) ng/mL AST (5-40) units/L Lactate Dehydrogenase (91-180) units/L Ur Specific [place] (1.003-1.030) 08/12/20 08/12/20 08/12/20 Range/Units 18:44 20:04 20:33 Sodium 149 H D (137-145) mmol/L Potassium (3.6-5.0) mmol/L Chloride (98-107) mmol/L Carbon Dioxide (22-30) mmol/L BUN (9-20) mg/dL Creatinine (0.8-1.3) mg/dL Glucose 210 H (75-100) mg/dL POC Glucose 209 H 239 H (70-105) mg/dL Hemoglobin A1c (4-6) % Calcium (8.4-10.2) mg/dL Phosphorus (2.5-4.5) mg/dL Magnesium (1.7-2.3) mg/dL Ferritin (30.0-300.0) ng/mL AST (5-40) units/L Lactate Dehydrogenase (91-180) units/L Ur Specific [place] (1.003-1.030) 08/12/20 08/12/20 08/12/20 Range/Units 20:56 21:02 22:00 Sodium (137-145) mmol/L Potassium (3.6-5.0) mmol/L Chloride (98-107) mmol/L Carbon Dioxide (22-30) mmol/L BUN (9-20) mg/dL Creatinine (0.8-1.3) mg/dL Glucose (75-100) mg/dL POC Glucose > 600 H > 600 H 164 H (70-105) mg/dL Hemoglobin A1c (4-6) % Calcium (8.4-10.2) mg/dL Phosphorus (2.5-4.5) mg/dL Magnesium (1.7-2.3) mg/dL Ferritin (30.0-300.0) ng/mL AST (5-40) units/L Lactate Dehydrogenase (91-180) units/L Ur Specific [place] (1.003-1.030) 08/12/20 08/13/20 08/13/20 Range/Units 23:09 00:05 01:05 Sodium (137-145) mmol/L Potassium (3.6-5.0) mmol/L Chloride (98-107) mmol/L Carbon Dioxide (22-30) mmol/L BUN (9-20) mg/dL Creatinine (0.8-1.3) mg/dL Glucose (75-100) mg/dL POC Glucose 165 H 176 H 137 H (70-105) mg/dL Hemoglobin A1c (4-6) % Calcium (8.4-10.2) mg/dL Phosphorus (2.5-4.5) mg/dL Magnesium (1.7-2.3) mg/dL Ferritin (30.0-300.0) ng/mL AST (5-40) units/L Lactate Dehydrogenase (91-180) units/L Ur Specific [place] (1.003-1.030) 08/13/20 08/13/20 08/13/20 Range/Units 02:03 03:09 05:07 Sodium 149 H (137-145) mmol/L Potassium (3.6-5.0) mmol/L Chloride 108.3 H (98-107) mmol/L Carbon Dioxide 31 H (22-30) mmol/L BUN (9-20) mg/dL Creatinine 1.4 H (0.8-1.3) mg/dL Glucose 136 H (75-100) mg/dL POC Glucose 182 H 150 H (70-105) mg/dL Hemoglobin A1c (4-6) % Calcium (8.4-10.2) mg/dL Phosphorus (2.5-4.5) mg/dL Magnesium (1.7-2.3) mg/dL Ferritin (30.0-300.0) ng/mL AST (5-40) units/L Lactate Dehydrogenase (91-180) units/L Ur Specific [place] (1.003-1.030) 08/13/20 08/13/20 08/13/20 Range/Units 05:10 05:59 06:54 Sodium (137-145) mmol/L Potassium (3.6-5.0) mmol/L Chloride (98-107) mmol/L Carbon Dioxide (22-30) mmol/L BUN (9-20) mg/dL Creatinine (0.8-1.3) mg/dL Glucose (75-100) mg/dL POC Glucose 143 H 169 H 190 H (70-105) mg/dL Hemoglobin A1c (4-6) % Calcium (8.4-10.2) mg/dL Phosphorus (2.5-4.5) mg/dL Magnesium (1.7-2.3) mg/dL Ferritin (30.0-300.0) ng/mL AST (5-40) units/L Lactate Dehydrogenase (91-180) units/L Ur Specific [place] (1.003-1.030) 08/13/20 08/13/20 Range/Units 08:04 11:08 Sodium (137-145) mmol/L Potassium (3.6-5.0) mmol/L Chloride (98-107) mmol/L Carbon Dioxide (22-30) mmol/L BUN (9-20) mg/dL Creatinine (0.8-1.3) mg/dL Glucose (75-100) mg/dL POC Glucose 127 H 307 H (70-105) mg/dL Hemoglobin A1c (4-6) % Calcium (8.4-10.2) mg/dL Phosphorus (2.5-4.5) mg/dL Magnesium (1.7-2.3) mg/dL Ferritin (30.0-300.0) ng/mL AST (5-40) units/L Lactate Dehydrogenase (91-180) units/L Ur Specific [place] (1.003-1.030)
[2020-08-13 13:34] LABS: BUN/Creatinine Ratio 13; Blood Urea Nitrogen 15 mg/dL (9-20); Hemolysis Index 13
[2020-08-13] MEDS ORDERED: INSULIN GLARGINE 100 UNITS/ML SUB-Q SCH (22:00)
[2020-08-14 05:56] LABS: Hematocrit 42.8 % (35.5-45.6); Mean Corpuscular HGB Conc 33 % (32-34); Mean Corpuscular Volume 81 fl (84-94); Platelet Count 129 K/mm3 (140-440); Red Blood Count 5.31 M/mm3 (3.65-5.03); Red Cell Distribution Width 14.1 % (13.2-15.2)
[2020-08-14 06:13] LABS: BUN/Creatinine Ratio 12; Blood Urea Nitrogen 15 mg/dL (9-20); Calcium 8.4 mg/dL (8.4-10.2); Hemolysis Index 18
[2020-08-14] MEDS: INSULIN LISPRO 100 UNIT/ML SUB-Q SCH ×3 (08:57→17:19)
[2020-08-14] MEDS: metFORMIN 500 MG TAB PO SCH ×2 (08:58→17:19)
[2020-08-14] MEDS ORDERED: GLIMEPIRIDE 2 MG TAB PO SCH (09:00)
[2020-08-14] MEDS: HEPARIN 5,000 UNIT/1 ML VIAL SUB-Q SCH (09:02)
[2020-08-14] MEDS: GLIMEPIRIDE 2 MG TAB PO SCH (09:05)
[2020-08-14] MEDS ORDERED: LOSARTAN 25 MG TAB PO SCH (10:00)
[2020-08-14 12:37] VITALS: BP 153/76
--- NOTE | 2020-08-14 16:43 | Discharge Summary ---
Providers - Providers Date of Admission: 08/13/20 18:57 Date of discharge: 08/14/20 Attending physician: LESLEY HOFF 08/12/20 21:49 Consult to Dietitian/Nutrition [CONS] Routine Physician Instructions: New onset diabetes, teach diet Reason For Exam: Hyperosmolar nonketotic state and diabetes Reason for Consult: Nutrition Recommendations Reason for Consult: Diet education Primary care physician: [employer] Hospitalization Reason for admission: New onset uncontrolled diabetes Condition: Serious Hospital course: History of present illness: 34-year-old -[place] male with history of hypertension and obesity presents with feeling weak and increased thirst and increased urination. Patient evaluate complaints. Patient had positive amount of alcohol 1 week ago but did not consume any in the last 1 week. In the emergency room patient was found to have blood glucose levels in the 600s. Work-up revealed new onset diabetes with hyperosmolar state. Hence patient being admitted for hyperosmolar nonketotic state. Patient has polyuria polydipsia and polyphagia. Not a known diabetic before. No fever or chills. Nausea present. No vomiting. Tongue is very dry. 08/13 Patient is resting in the bed, alert and oriented, he offers no specific complaints, states he feels a whole lot better today He denies any fever or chills. Denies feeling dehydrated today. Denies chest pain or shortness of breath, nausea or abdominal pain or melena Lab results reviewed 08/14 Patient resting in the bed, alert and oriented, no complaints, blood sugars moderately elevated however he is medically stable for discharge and will follow up with primary care physician. I had a long discussion with the patient regarding importance of diabetes control, diet control and daily exercise Assessment and plan Hyperosmolar nonketotic new onset type 2 diabetes A1c 13.7 Accu-Cheks reviewed Started on oral hypoglycemics and basal insulin with Lantus Hyperkalemia Secondary to #1 Improved Acute kidney injury Secondary to severe dehydration Improved Hypertension Patient is not aware of having hypertension We will start on low-dose ARB Tobacco abuse Smoking cessation counseling was done Disposition: TO HOME OR SELFCARE Final Discharge Diagnosis (Prints w/discharge instructions): New onset hyperosmolar nonketotic diabetes Time spent for discharge: 38 minutes Core Measure Documentation - Palliative Care Palliative Care/ Comfort Measures: Not Applicable - Core Measures Any of the following diagnoses?: none Exam - Constitutional Vitals: Temp Pulse Resp BP Pulse Ox 97.4 F L 64 18 153/76 99 08/14/20 11:51 08/14/20 11:51 08/14/20 11:51 08/14/20 11:51 08/14/20 11:51 General appearance: Present: no acute distress, well-nourished - EENT Eyes: Present: PERRL, EOM intact ENT: hearing intact, clear oral mucosa - Neck Neck: Present: supple, normal ROM - Respiratory Respiratory effort: normal Respiratory: bilateral: CTA - Cardiovascular Rhythm: regular Heart Sounds: Present: S1 & S2 - Extremities Extremities: No edema - Abdominal General gastrointestinal: Present: soft, non-tender Male genitourinary: Present: deferred - Rectal Rectal Exam: deferred - Integumentary Integumentary: Present: clear - Musculoskeletal Musculoskeletal: strength equal bilaterally - Psychiatric Psychiatric: appropriate mood/affect - Neurologic Neurologic: no focal deficits Plan Activity: no restrictions Weight Bearing Status: Full Weight Bearing Diet: regular, low fat, diabetic Follow up with: PRIMARY CAREMD [Primary Care Provider] - 3-5 Days ELIE DU MD [Staff Physician] - 7 Days Prescriptions: Glimepiride [Amaryl] 4 mg PO QDDIAB #30 tablet Losartan [Cozaar] 50 mg PO QDAY #30 tablet metFORMIN [Glucophage] 500 mg PO BIDDIAB #60 tablet Insulin Glargine [Lantus VIAL] 10 units SUB-Q QHS #10 ml
[2020-08-14] MEDS ORDERED: INSULIN GLARGINE 100 UNITS/ML SUB-Q SCH (22:00)
== END 2020-08-14 18:12 | disposition home or self-care (01) ==
LOC: ED 08:25 → CC1 13:30 → UNDOADMOB 13:30 → 4A 08-13 18:57
PROVIDERS: ADMIT Internal Medicine; ATTEND Internal Medicine
DX: E11.10 Type 2 diabetes mellitus with ketoacidosis without coma (principal); Z20.822 Contact with and (suspected) exposure to COVID-19; I10 Essential (primary) hypertension; E86.0 Dehydration; N17.9 Acute kidney failure, unspecified; E66.9 Obesity, unspecified; E87.5 Hyperkalemia; F17.200 Nicotine dependence, unspecified, uncomplicated; Z79.4 Long term (current) use of insulin; Z68.33 Body mass index [BMI] 33.0-33.9, adult; Z79.899 Other long term (current) drug therapy
CPT/HCPCS: 36415; 71046; 80048; 80053; 81001; 82550; 82728; 82805; 82947; 82962; 83036; 83615; 83735; 84100; 84145; 85027; 85379; 86140; 96365; 96366; 96372; 96376; 99291; G0378; J1644; J7030; J7120; U0003; J1815